=== PATIENT | female | born 1955 | race Caucasian/White ===

== ENCOUNTER 2017-03-15 08:17 | Emergency (ER) | payer SELFPAY ==
[~2017-03-15] VITALS: Ht 157.5 cm; Wt 68.0 kg
[2017-03-15 08:26] VITALS: BP 172/91
== END 2017-03-15 10:11 | disposition home or self-care (01) ==
LOC: ER 08:17
DX: Z76.0 Encounter for issue of repeat prescription (principal); E11.9 Type 2 diabetes mellitus without complications; I10 Essential (primary) hypertension; Z79.4 Long term (current) use of insulin